=== PATIENT | female | born 1950 | race Caucasian/White ===

== ENCOUNTER 2018-04-28 20:07 | Emergency (ER) | payer OTHER, MEDICARE ==
[~2018-04-28] VITALS: Ht 170.2 cm; Wt 79.0 kg
[2018-04-28 20:13] VITALS: TEMP 36.6; Ht 170.2 cm; Wt 79.0 kg
--- NOTE | 2018-04-28 21:12 | DIAGNOSTIC IMAGING REPORT ---
HEAD WITHOUT CONTRAST (CT) CLINICAL HISTORY: 67 years-old Female with fall, lac. Acute head injury with soft tissue laceration TECHNIQUE: Multiple axial CT images of the head were obtained without contrast. A dose lowering technique was utilized adhering to the principles of ALARA. CT DOSE: 537.48 mGy.cm COMPARISON: None. FINDINGS: No acute intracranial hemorrhage, midline shift, intracranial mass, hydrocephalus, territorial ischemia or abnormal extra-axial collection. Mild age-related atrophy. Cerebral vascular calcifications are noted. The calvarium is intact. The paranasal sinuses, mastoid air cells, and middle ear cavities are clear. Mild soft tissue swelling with subcutaneous emphysema noted about the right parietal scalp. Multiple skin royal are also noted. No foreign body identified. IMPRESSION: 1. No acute intracranial abnormality or calvarial fracture. 2. Soft tissue swelling and laceration with skin royal about the right parietal scalp. The above report was generated using voice recognition software. It may contain grammatical, syntax or spelling errors. Electronically signed by: Amandeep Olguin M.D. 04/28/2018 9:11 PM Dictated Date/Time: 04/28/2018 9:08 PM
[2018-04-28] MEDS ORDERED: LOSA1TAB PO (21:19)
[2018-04-28] MEDS ORDERED: LEVO100T7 PO (21:21)
[2018-04-28] MEDS ORDERED: BUPRTAB51 PO (21:21)
[2018-04-28] MEDS ORDERED: PROP10TA7 PO (21:21)
--- NOTE | 2018-04-28 21:36 | EMERGENCY ROOM VISIT NOTE ---
History Report prepared by Nelson: Ashley Wang Under the Supervision of: Dr. Michael Rizvi M.D. First contact with patient: 20:27 Chief Complaint: FALL Stated Complaint: HEAD LACERATION Nursing Triage Summary: Patient presents to triage via wheelchair, states "I was getting up from the couch. The toe of my sneaker caught on something. I launched forward. My head hit on the corner of the door way. I have a laceration to the top of the right side of my head. I hurt my right knee as well." Patient denies an LOC with the fall. Patient does not take any blood thinners. History of Present Illness The patient is a 67 year old female who presents to the Emergency Room with complaints of constant head bleeding beginning this evening. She notes she fell after her toe became caught on her sandals, and she landed on her head and knee. The patient reports her sister is a former EMT, and recommended she be seen in the ED for her head laceration as she was unsure how serious it was. She denies a headache or nausea, and notes she has chronic neck pain. The patient denies blood thinner or aspirin use. She notes she is from [facility] and is here visiting family. Source of History: patient, family (sister) Onset: this evening Position: head Quality: other (bleeding) Timing: constant Associated Symptoms: No headache, No nausea Review of Systems See HPI for pertinent positives and negatives. A total of ten systems were reviewed and were otherwise negative. Past Medical & Surgical Medical Problems: (1) HTN (hypertension) (2) Kidney infection (3) Kidney stones Family History FHx: cancer FHx: diabetes mellitus FHx: hypertension FHx: seizures Social History Smoking Status: Former Smoker Smokeless Tobacco Use: No Alcohol Use: none Drug Use: none Marital Status: single Housing Status: lives alone Occupation Status: employed Current/Historical Medications Scheduled Bupropion (Wellbutrin-Xl), 300 MG PO DAILY Levothyroxine Sodium (Levothyroxine Sodium), 100 MCG PO DAILY Losartan Potassium (Cozaar), 25 MG PO DAILY Propranolol (Inderal), 10 MG PO DAILY Allergies Coded Allergies: Sulfa Antibiotics (Verified Allergy, Unknown, Childhood allergy, 04/28/18) Physical Exam Vital Signs Date Time Temp Pulse Resp B/P (MAP) Pulse Ox O2 Delivery O2 Flow Rate FiO2 04/28/18 21:50 65 18 178/98 95 04/28/18 20:13 36.6 71 18 169/94 98 Room Air Physical Exam GENERAL: Awake, alert, well-appearing, in no distress. Cameron wrap on head HENT: Normocephalic. Oropharynx unremarkable. 3.5 cm laceration to R parietal area. EYES: Normal conjunctiva. Sclera non-icteric. NECK: Supple. No nuchal rigidity. RESPIRATORY: Clear to auscultation. No wheezes. Normal respiratory effort. CARDIAC: Normal rate. Normal rhythm. Extremities warm and well perfused. GI: Soft, non-distended. No tenderness to palpation. No rebound or guarding. No masses. RECTAL: Deferred. MUSCULOSKELETAL: Atraumatic. Chest examination reveals no tenderness. There is no CVA tenderness to palpation. LOWER EXTREMITIES: Calves are equal size bilaterally and non-tender. No edema NEURO: Normal sensorium. No sensory or motor deficits noted. No facial droop. SKIN: Warm and dry. No rash or jaundice noted. Medical Decision & Procedures ER Provider Diagnostic Interpretation: Radiology results as stated below per my review and radiologist interpretation: HEAD WITHOUT CONTRAST (CT) CLINICAL HISTORY: 67 years-old Female with fall, lac. Acute head injury with soft tissue laceration TECHNIQUE: Multiple axial CT images of the head were obtained without contrast. A dose lowering technique was utilized adhering to the principles of ALARA. CT DOSE: 537.48 mGy.cm COMPARISON: None. FINDINGS: No acute intracranial hemorrhage, midline shift, intracranial mass, hydrocephalus, territorial ischemia or abnormal extra-axial collection. Mild age-related atrophy. Cerebral vascular calcifications are noted. The calvarium is intact. The paranasal sinuses, mastoid air cells, and middle ear cavities are clear. Mild soft tissue swelling with subcutaneous emphysema noted about the right parietal scalp. Multiple skin royal are also noted. No foreign body identified. IMPRESSION: 1. No acute intracranial abnormality or calvarial fracture. 2. Soft tissue swelling and laceration with skin royal about the right parietal scalp. The above report was generated using voice recognition software. It may contain grammatical, syntax or spelling errors. Electronically signed by: Amandeep Olguni M.D. 04/28/2018 9:11 PM Dictated Date/Time: 04/28/2018 9:08 PM Medications Administered Medications (Trade) Dose Ordered Sig/Maxwell Route Start Time Stop Time Status Last Admin Dose Admin Diphtheria/ Pertussis/Tetanus Vacc (Adacel Inj) 0.5 ml ONCE ONCE IM. 04/28/18 21:45 04/28/18 21:46 DC 04/28/18 21:44 0.5 ML Procedure Location: R parietal Total length: 3.5 cm Complexity: simple Verbal consent was obtained after the risks and benefits were explained, including but not limited to bleeding, scarring, infection, pain, and bone/joint /nerve damage. At this time, the risks of the procedure are less than the risks of NOT performing the procedure. A time out was taken and the correct patient and site identified. Copious irrigation was performed using saline. The skin was re-prepped with betadine and a sterile field set. The wound was explored for foreign bodies and none found. Examination revealed no injury to deep structures such as tendons, bone, or significant blood vessels. Debridement was not performed. The wound edges were approximated using 6 royal. Hemostasis and excellent approximation was achieved. Antibacterial ointment and a sterile dressing applied. Detailed wound care instructions and signs and symptoms of infection reviewed with the patient. No complications and the patient tolerated the procedure well. ED Course 2037: The patient was evaluated in room C6. A complete history and physical exam was performed. 2038: I performed a laceration repair procedure. 2140: I reevaluated the patient. Discussed results and discharge instructions: she verbalized understanding and agreement. The patient is ready for discharge. 2144: Ordered Adacel Inj 0.5 ml IM. Medical Decision Etiologies such as fracture, dislocation, intra-abdominal, pneumothorax, intrathoracic , intracranial, neurologic, as well as other traumatic pathologies were entertained. Patient presents after mechanical ground level fall with a laceration of the right side of her head. Boostrix update. No blood thinner or antiplatelet use. No other trauma reported or findings of trauma. Bleeding controlled from scalp wound. No neurological deficits minimal headache. Closed as above with royal. No foreign body and do not think antibiotics are needed. CT head completed without acute findings. Discussed concussion and head injury instructions feel the patient stable for discharge home. Given wound care instructions. Discussed return precautions. Head Trauma GCS Score: 15 Medication Reconcilliation Current Medication List: was personally reviewed by me Blood Pressure Screening Patient's blood pressure: Elevated blood pressure Blood pressure disposition: Elevated BP felt to be situational Impression Primary Impression: Scalp laceration Additional Impression: Fall Scribe Attestation The scribe's documentation has been prepared under my direction and personally reviewed by me in its entirety. I confirm that the note above accurately reflects all work, treatment, procedures, and medical decision making performed by me. Departure Information Dispostion Home / Self-Care Referrals No Doctor, Assigned (PCP) Forms HOME CARE DOCUMENTATION FORM, IMPORTANT VISIT INFORMATION Patient Instructions My [facility] Additional Instructions Your royal should be removed in approximately 5-7 days. Monitor for any signs of infection such as purulent discharge. Utilize Tylenol or Motrin for pain. If you have new or concerning symptoms including but not limited to new numbness or weakness, lethargy, or intractable vomiting please read present for reevaluation. Problem Qualifiers Primary Impression: Scalp laceration Encounter type: initial encounter Qualified Codes: S01.01XA - Laceration without foreign body of scalp, initial encounter Additional Impression: Fall Encounter type: initial encounter Qualified Codes: W19.XXXA - Unspecified fall, initial encounter
[2018-04-28] MEDS ORDERED: DIPHTHERIA/TETANUS/PERTUSSIS 0.5 ML SYR/VIAL IM. ONE (21:45)
[2018-04-28 21:50] VITALS: BP 178/98; PULSE 65; O2SAT 95
== END 2018-04-28 21:51 | disposition home or self-care (01) ==
LOC: C.EDB 20:09 → C.EDC 21:51
DX: S01.01XA Laceration without foreign body of scalp, initial encounter (principal); Z23 Encounter for immunization; I10 Essential (primary) hypertension; Z79.899 Other long term (current) drug therapy; Z88.1 Allergy status to other antibiotic agents; Z88.2 Allergy status to sulfonamides; Z87.891 Personal history of nicotine dependence; W19.XXXA Unspecified fall, initial encounter